=== PATIENT | female | born 1965 | race Asian ===

== ENCOUNTER 2023-03-07 04:33 | Emergency (ER) | payer BC ==
[2023-03-07] MEDS ORDERED: Metoclopramide HCl 10 MG/2 ML VIAL ONE (05:05)
[2023-03-07] MEDS ORDERED: Meclizine HCl 25 MG TAB ONE (05:05)
[2023-03-07] MEDS ORDERED: Ketorolac Tromethamine 30 MG/ML VIAL ONE (05:40)
== END 2023-03-07 06:21 | disposition home or self-care (01) ==
LOC: CSHERS 04:33
DX: R42 Dizziness and giddiness (principal); R51.9 Headache, unspecified; E78.5 Hyperlipidemia, unspecified
CPT/HCPCS: 70450; 96374; 96375; J1885; J2765

== ENCOUNTER 2023-05-10 14:05 | Outpatient (CLI) | payer BC | END 2023-05-10 14:06 | disposition home or self-care (01) | LOC: CSHMAMMO 14:05 | PROVIDERS: ATTEND Family Medicine | DX: Z12.31 Encounter for screening mammogram for malignant neoplasm of breast (principal); Z91.89 Other specified personal risk factors, not elsewhere classified | CPT/HCPCS: 77063; 77067 ==